=== PATIENT | male | born 1990 | race Caucasian/White ===

== ENCOUNTER 2023-03-23 19:52 | Outpatient (REF) | payer MEDICAID, SELFPAY ==
[2023-03-24 09:48] LABS: CT PCR NOT DETECTED (Not Detect.); NG PCR NOT DETECTED (Not Detect.)
[2023-03-25 23:59] LABS: Trichomonas vaginalis RNA NOT DETECTED (NOT DETECTED)
== END 2023-03-23 19:53 | disposition home or self-care (01) ==
LOC: HO.HHCLNP 19:52
PROVIDERS: Visit Provider Nurse Practitioner Primary Care
DX: R31.0 Gross hematuria (principal)
CPT/HCPCS: 0353U; 36415; 87661

== ENCOUNTER 2023-03-24 08:59 | Outpatient (REF) | payer MEDICAID, SELFPAY ==
[2023-03-25 07:43] LABS: HIV AB/AG Nonreactive (Nonreactive); HIV Num 1 0.06 S/CO (0.00-0.99); ~Hepatitis C Antibody Nonreactive (Nonreactive)
[2023-03-25 17:54] LABS: RPR Rapid Plasma Reagin NON-REACTIVE (NON-REACTIVE)
== END 2023-03-24 09:00 | disposition home or self-care (01) ==
LOC: HO.CHCLDS 08:59
PROVIDERS: Visit Provider Nurse Practitioner Primary Care
DX: Z11.4 Encounter for screening for human immunodeficiency virus [HIV] (principal); Z11.3 Encounter for screening for infections with a predominantly sexual mode of transmission
CPT/HCPCS: 36415; 86592; 86803; 87389

== ENCOUNTER 2023-04-21 11:15 | Outpatient (REF) | payer OTHER, SELFPAY ==
[2023-04-22 09:16] LABS: ~HepC Num1 0.14 S/CO (0.00-0.79); ~Hepatitis C Antibody Nonreactive (Nonreactive)
[2023-04-24 19:45] LABS: HIV RNA PCR Qn Copies Not Detected Copies/mL; HIV RNA PCR Qn Log Copies Not Detected Log cps/mL
== END 2023-04-21 11:16 | disposition home or self-care (01) ==
LOC: HO.CHCLDS 11:15
PROVIDERS: Visit Provider Student in an Organized Health Care Education/Training Program
DX: Z00.00 Encounter for general adult medical examination without abnormal findings (principal); Z11.4 Encounter for screening for human immunodeficiency virus [HIV]
CPT/HCPCS: 36415; 86803; 87536; 87900

== ENCOUNTER 2023-05-29 15:28 | Outpatient (AMB) | payer OTHER, SELFPAY ==
--- NOTE | 2023-05-29 15:29 | MHC.OFFVIS ---
Intake Intake Visit Reasons: Hematuria and Hematospermia Intake Note: New Patient presents for initial visit for hematuria Urology Medications: none Blood Thinner: none Store Merchandiser Required: No Accompanied by: Self / Same As Patient Allergies Penicillins Allergy (Unknown, Verified 05/30/23 22:09) Unknown amoxicillin Allergy (Uncoded 05/30/23 22:09) Unknown Medication List - Last Reconciled 05/30/23 by KRISHNA Palma albuterol sulfate 90 mcg/actuation inhalation amitriptyline 25 mg PO BEDTIME doxycycline hyclate 100 mg PO BID 14 days epinephrine IM loratadine 10 mg PO DAILY omeprazole 20 mg PO DAILY topiramate 50 mg PO BEDTIME HPI HPI Comments History of Present Illness Details Car is a 32-year-old male patient of Dr. Arias. He has a past medical history of asthma, cluster headaches, and allergic rhinitis. He presents to the office today as a new patient for ongoing hematospermia. In discussion with the patient today reports having followed up with his PCP approximately 2 months ago for dark-colored urine and hematospermia. He reports recommendations were made for urology referral for further assessment evaluation. When asked he reports hematospermia to be intermittent. He reports last episode was approximately 2-3 weeks ago. He reports at times he feels bladder pressure as well as pain in his left testicle. For reports pain and left testicle is upon ejaculation. He otherwise denies penile discharge. He does report to be sexually active with the same partner for approximately 6 years. He denies any recent or previous trauma to the area. He reports previous STI workup with PCP that was negative. He otherwise denies urinary urgency, urinary frequency, incontinence, nocturia, dysuria, foul smelling urine, changes to urinary stream, flank pain, fever, and or chills. He is happy with his current voiding parameters. In office urinalysis results reviewed with the patient today. He otherwise offers no other issues or concerns at this time. FORMERLY [facility] Medical History Cluster headache Moderate asthma with allergic rhinitis with status asthmaticus Review of Systems Const All systems reviewed & are unremarkable except as noted in HPI and below Physical Exam Const General: cooperative, healthy appearing, comfortable, no acute distress, well developed, alert and awake Orientation/consciousness: patient oriented x3 Limitations: no limitations HEENT Head: Yes normal to inspection, Yes normocephalic and Yes atraumatic Ears: hearing grossly normal bilaterally Eyes General: appearance normal, both eyes and all related structures Neck Neck: Yes normal visual inspection and Yes trachea midline Chest Chest palpation & inspection: normal inspection of the chest Resp Effort & Inspection: normal respiratory effort and able to speak in complete sentences Cardio Rate: regular rate GI Inspection: Yes normal to inspection General: Yes no CVA tenderness Back/Spine/Pelvis Back: no CVA tenderness Skin General skin exam: no rashes or lesions noted Neuro General: patient oriented x3 Extrem General: Yes normal to inspection Psych Appearance: grossly normal and well kempt Mental Status: mental status grossly normal Speech and movement: Normal speech and movement present and Clear speech present Affect: normal affect Attitude: cooperative Thought process: Normal thought process present Thought content: Normal thought content present Insight: Fair insight present (Psych) Judgement: Fair judgement present (Psych) Results AMB Urinalysis, Automated UA Leukoctes 0 Smita/uL Last Edit by [employer] on 05/29/23 15:46 UA Nitrite Negative Last Edit by [employer] on 05/29/23 15:46 UA Urobilinogen 0.2 mg/dL Last Edit by [employer] on 05/29/23 15:46 UA Protein 0 mg/dL Last Edit by [employer] on 05/29/23 15:46 UA pH 6.5 Last Edit by [employer] on 05/29/23 15:46 UA Blood 0 Alex/uL Last Edit by [employer] on 05/29/23 15:46 UA Specific [place] 1.010 Last Edit by [employer] on 05/29/23 15:46 UA Ketone Negative Last Edit by [employer] on 05/29/23 15:46 UA Bilirubin 0 mg/dL Last Edit by [employer] on 05/29/23 15:46 UA Glucose 0 mg/dL Last Edit by [employer] on 05/29/23 15:46 Results Reviewed Results Reviewed: Laboratory Last Values Urine pH (Auto) 6.5 05/29/23 15:40 Specific [place] (Auto) 1.010 05/29/23 15:40 Urine Protein (Auto) 0 mg/dL 05/29/23 15:40 Glucose (UA)(Auto) 0 mg/dL 05/29/23 15:40 Urine Ketones (Auto) Negative 05/29/23 15:40 Urine Blood (Auto) 0 Alex/uL 05/29/23 15:40 Urine Nitrite (Auto) Negative 05/29/23 15:40 Urine Bilirubin (Auto) 0 mg/dL 05/29/23 15:40 Urine Urobilinogen (Auto) 0.2 mg/dL 05/29/23 15:40 Leukocyte Esterase (Auto) 0 Smita/uL 05/29/23 15:40 Assessment & Plan Assessment & Plan (1) Hematospermia: Code(s): R36.1 - Hematospermia (2) Sensation of pressure in bladder area: Code(s): R39.89 - Other symptoms and signs involving the genitourinary system Plan In office urinalysis results reviewed with the patient today; as noted above. Discussed at length potential causes of hematospermia. Reassurance provided. Start doxycycline as discussed and prescribed. Patient reports be happy with current voiding parameters. Discussed at length the importance of drinking plenty of water daily. Follow-up in 3 months; or sooner with any issues, concerns, and or questions. Orders: Orders AMB Urinalysis Automated 05/29/23 Z13.9 - Encounter for screening, unspecified Medications: New doxycycline hyclate 100 mg PO BID 14 days 28 tabs 0RF N39.0 - Urinary tract infection, site not specified, N45.1 - Epididymitis Patient Instructions: The patient had an opportunity to ask questions regarding the treatment plan. All questions were answered. Physical exam, labs, and imaging were discussed and reviewed in detail. As well as risks, benefits, and discussion of treatment choices. No major barriers to understanding were identified. The patient expressed understanding and agreement with the above treatment plan. The patient was made aware they should contact our office by phone for worsening of their current condition, the appearance of new symptoms, or with any questions or concerns. Compliance is encouraged with any medications and follow up testing that is ordered. It is a privilege to be allowed the opportunity to participate in? your urological care.? Again, if you have any questions or concerns If you have any questions or concerns please do not hesitate to contact me. The office is [phone]. This note is constructed using voice recognition software. While every effort has been made to ensure accuracy correctional supply supervisor errors may have been included. Yours sincerely, KRISHNA Palma Coding Level of Care Code New Pt Level 4 (27857) Diagnoses Hematospermia R36.1 Sensation of pressure in bladder area R39.89
== END 2023-05-29 16:06 | disposition home or self-care (01) ==
PROVIDERS: PCP Student in an Organized Health Care Education/Training Program; Visit Provider Nurse Practitioner Family
DX: Z13.9 Encounter for screening, unspecified (principal)
CPT/HCPCS: 99204

== ENCOUNTER → 2023-05-29 15:28 | Outpatient (BNVA) | payer OTHER, SELFPAY | PROVIDERS: PCP Student in an Organized Health Care Education/Training Program; Visit Provider Nurse Practitioner Family | DX: R36.1 Hematospermia (principal); R39.89 Other symptoms and signs involving the genitourinary system | CPT/HCPCS: 81003 ==

== ENCOUNTER 2023-12-08 11:05 | Emergency (ER) | payer OTHER, SELFPAY ==
[2023-12-08 11:28] VITALS: BP 133/88; PULSE 69; RESP 16; TEMP 36.9; O2SAT 98; BMI 34.0
--- NOTE | 2023-12-08 11:31 | ED.GENADULT ---
HPI - General Adult General Chief complaint: General Medical Stated complaint: Needle stick Time Seen by Provider: 12/08/23 11:31 Source: patient Limitations: no limitations History of Present Illness ED Provider: Miya Mcdonald PA-C HPI narrative: 33-year-old male presents after needlestick. 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 Patient is up-to-date on his vaccines, the source patient was identified, his employers currently reaching out to ask the patient if they are willing to be screened against blood borne pathogens. Related Data Home Medications ?Medication ?Instructions ?Recorded ?Confirmed albuterol sulfate 90 mcg/actuation inhalation 05/29/23 aerosol inhaler amitriptyline 25 mg tablet 25 mg PO BEDTIME 05/29/23 epinephrine 0.3 mg/0.3 mL IM 05/29/23 injection, auto-injector loratadine 10 mg tablet 10 mg PO DAILY 05/29/23 omeprazole 20 mg capsule,delayed 20 mg PO DAILY 05/29/23 release topiramate 50 mg tablet 50 mg PO BEDTIME 05/29/23 Previous Rx's ?Medication ?Instructions ?Recorded doxycycline hyclate 100 mg tablet 100 mg PO BID 14 days #28 tabs 05/29/23 Allergies Allergy/AdvReac Type Severity Reaction Status Date / Time Penicillins Allergy Unknown Unknown Verified 12/08/23 11:28 amoxicillin Allergy Unknown Uncoded 05/30/23 22:09 Review of Systems Review of Systems: Yes all other systems are reviewed and are negative Constitutional: Constitutional: Denies fatigue and Denies fever(s) Cardiovascular: Cardiovascular: Denies chest pain and Denies dyspnea Respiratory: Respiratory: Denies dyspnea Integumentary/Breasts: Skin/Breast: Denies rash Endocrine: Endocrine: Denies fatigue FORMERLY [facility], [facility] Past Medical History Attestation statement: The following information was validated with the patient. Medical History Cluster headache Moderate asthma with allergic rhinitis with status asthmaticus Social History Social History Do you have a plan to hurt others: No Plan Physical Exam ED Vital Signs: Vital Signs - 24 hr 12/08/23 11:28 Temperature 98.5 F Pulse Rate 69 Respiratory Rate 16 Blood Pressure 133/88 Pulse Oximetry 98 Oxygen Delivery Method Room Air BMI result Body Mass Index 34.0 Const Other: Alert well in appearance Orientation/consciousness: patient oriented x3 Resp Other: Nonlabored respirations Cardio Other: Normal peripheral perfusion Skin Other: Faint pinpoint needle stick noted at the PIP of right 2nd digit not bleeding Neuro General: patient oriented x3, no focal motor deficits and CN's II-XI intact bilaterally Psych Other: Calm cooperative Medications Administered Discontinued Medications Generic Name Dose Route Start Last Admin Trade Name Jo PRN Reason Stop Dose Admin Raltegravir/Emtricitabine/Tenofovir 1 kit 12/08/23 11:28 12/08/23 11:48 Post Exposure Medication Kit PO 12/08/23 11:29 1 kit ONCE ONE Administration Medical Decision Making Medical Decision Making MDM Narrative: 33-year-old male presents after needlestick. 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 Patient is up-to-date on his vaccines, the source patient was identified, his employers currently reaching out to ask the patient if they are willing to be screened against blood borne pathogens. No chronic problems History per patient I have considered the following differential diagnoses: Potential exposure to blood borne pathogens Plan: The source patient was identified, his employer is currently reaching out to see if they are willing to be screened. The patient will be screened, we are initiating post exposure prophylaxis. Can follow up with his employer and his primary care provider. There was no indication for labs or imaging. Lab Data 12/08/23 11:46 12/08/23 11:46 Discharge Plan Discharge Clinical Impression: Accidental hypodermic needlestick injury Patient Disposition: Home, Self-Care Additional Instructions: Labs were obtained. You are being screened for potential exposure to hepatitis-B, hepatitis-C and HIV. I would reach out to your employer to see if the source patient agreed for the same screening you received. You are receiving a 4 day supply of HIV post exposure prophylaxis. Take the medication as directed, you need to follow up with your primary care provider for the additional prescription for the antiviral medications, which you should take over the course of a month. Prescriptions: No Action topiramate 50 mg tablet 50 mg PO BEDTIME amitriptyline 25 mg tablet 25 mg PO BEDTIME loratadine 10 mg tablet 10 mg PO DAILY albuterol sulfate 90 mcg/actuation HFA aerosol inhaler inhalation epinephrine 0.3 mg/0.3 mL auto-injector IM omeprazole 20 mg capsule,delayed release(DR/EC) 20 mg PO DAILY doxycycline hyclate 100 mg tablet 100 mg PO BID 14 Days Qty: 28 0RF Stand Alone Forms: Work/School Release Print Language: Amharic
[2023-12-08] MEDS: Post Exposure Medication Kit 1 KIT PO (11:48)
[2023-12-08 11:51] LABS: MANUAL DIFF FLAG NO
[2023-12-08 11:53] LABS: Basophils Percent Auto 0.5 % (0-2); Eosinophils Absolute Auto 0.1 X10*3/uL (0.0-0.4); Eosinophils Percent Auto 2.1 % (0-4); Hematocrit 42.9 % (42.0-52.0); Hemoglobin 15.3 g/dl (14.0-18.0); Imm Gran Abs Auto 0.01 X10*3/uL (0.00-0.03); Imm Gran Pct Auto 0.2 % (0.0-0.4); Lymphocytes Absolute Auto 1.8 X10*3/uL (1.2-4.9); Lymphocytes Percent Auto 29.3 % (20-40); Mean Corpuscular HGB Conc 35.7 g/dl (31.0-36.0); Mean Corpuscular Hemoglobin 28.7 pg (27.0-33.0); Mean Corpuscular Volume 80.3 fL (80.0-98.0); Mean Platelet Volume 8.8 fL (9.4-12.4); Monocytes Absolute Auto 0.6 X10*3/uL (0.1-1.2); Monocytes Percent Auto 9.8 % (2-11); Neutrophils Absolute Auto 3.5 x10*3/uL (2.0-8.3); Neutrophils Percent Auto 58.1 % (45-73); Platelet Count 324 X10*3/uL (160-400); Red Blood Count 5.34 X10*6/uL (4.60-5.80); Red Cell Distribution Width 13.2 % (11.0-16.0); White Blood Count 6.1 X10*3/uL (4.8-10.8)
[2023-12-08 12:21] LABS: Albumin Level 4.8 g/dL (3.5-5.0); Alkaline Phosphatase 111 U/L (39-117); Amylase 54 U/L (28-100); Aspartate Amino Transferase 32 U/L (5-37); Bilirubin Direct 0.1 mg/dL (0.0-0.5); Bilirubin Total 0.5 mg/dL (0.0-1.0); Creatinine Clr Calc Pharmacy 122.5; Estimated Glomerular Filt Rate > 60; Total Protein 7.7 g/dL (6.5-8.0)
[2023-12-08 12:54] LABS: HBS Num1 > 1000.00 mIU/mL (0-7.99); HBc Num1 0.33 S/CO (0.00-0.79); HBsAGNum1 0.28 S/CO (0.00-0.99); HIV AB/AG Nonreactive (Nonreactive); HIV Num 1 0.06 S/CO (0.00-0.99); Hepatitis B Core Antibody Nonreactive (Nonreactive); Hepatitis B Surface Antigen Negative (Negative); ~HepC Num1 0.23 S/CO (0.00-0.79); ~Hepatitis B Surface Antibody REACTIVE (Nonreactive); ~Hepatitis C Antibody Nonreactive (Nonreactive)
[2023-12-08 13:23] LABS: Alanine Aminotransferase 56 U/L (0-40)
== END 2023-12-08 11:57 | disposition home or self-care (01) ==
PROVIDERS: Physician Assistant Medical; Emergency Provider Emergency Medicine; PCP Student in an Organized Health Care Education/Training Program
DX: S61.230A Puncture wound without foreign body of right index finger without damage to nail, initial encounter (principal); M79.641 Pain in right hand; X58.XXXA Exposure to other specified factors, initial encounter; Y93.89 Activity, other specified; Y92.89 Other specified places as the place of occurrence of the external cause; Y99.0 Civilian activity done for income or pay; Z20.828 Contact with and (suspected) exposure to other viral communicable diseases; Z79.899 Other long term (current) drug therapy
CPT/HCPCS: 36415; 80076; 82150; 82565; 85025; 86704; 86706; 86803; 87340; 87389; 99282; 99283

== ENCOUNTER 2024-08-04 15:13 | Outpatient (AMB) | payer OTHER, SELFPAY ==
--- NOTE | 2024-08-04 15:15 | MHC.OFFVIS ---
Intake Visit Reasons: follow up Intake Note: Patient presents for follow up visit for hematospermia Urology Medications: none Blood Thinner: none High Pressure Cleaner Required: No Accompanied by: Self / Same As Patient Allergies Penicillins Allergy (Unknown, Verified 08/04/24 21:28) Unknown amoxicillin Allergy (Uncoded 08/04/24 21:28) Unknown Medication List - Last Reconciled 08/04/24 by KRISHNA Palma albuterol sulfate 90 mcg/actuation inhalation epinephrine IM loratadine 10 mg PO DAILY omeprazole 20 mg PO DAILY HPI Comments Details: Car is a 34-year-old male patient of Dr. Arias. He has a past medical history of asthma, cluster headaches, and allergic rhinitis. He presents to the office today for follow-up. Of note, patient was last seen will for 13 months ago at which time recommendations were made for initiation of doxycycline in recommendations were made for a three-month follow-up. However, in discussion with the patient today he reports after completion of antibiotic therapy hematospermia has since resolved however has been experiencing issues with urinary stream. He reports at times he has urinary hesitancy. He describes these episodes as intermittent. Previous scrotal ultrasound 04/11 results reviewed with the patient today left-sided varicocele otherwise unremarkable scrotal ultrasound. We did discussed at length potential causes of varicoceles as well as further treatment options and risks and benefits of these treatment options. He denies urinary urgency, urinary frequency, incontinence, nocturia, dysuria, foul smelling urine, changes to urinary stream, flank pain, fever, and or chills.. In office urinalysis results reviewed with the patient today. He otherwise offers no other issues or concerns at this time. COUNTS INCLUDE 234 BEDS AT THE [facility] Medical History Cluster headache Moderate asthma with allergic rhinitis with status asthmaticus Review of Systems Const All systems reviewed & are unremarkable except as noted in HPI and below Physical Exam Const General: cooperative, healthy appearing, comfortable, no acute distress, well developed, alert and awake Orientation/consciousness: patient oriented x3 Limitations: no limitations HEENT Head: Yes normal to inspection, Yes normocephalic and Yes atraumatic Ears: hearing grossly normal bilaterally Eyes General: appearance normal, both eyes and all related structures Neck Neck: Yes normal visual inspection and Yes trachea midline Chest Chest palpation & inspection: normal inspection of the chest Resp Effort & Inspection: normal respiratory effort and able to speak in complete sentences Cardio Rate: regular rate GI Inspection: Yes normal to inspection General: Yes no CVA tenderness Back/Spine/Pelvis Back: no CVA tenderness Skin General skin exam: no rashes or lesions noted Neuro General: patient oriented x3 Extrem General: Yes normal to inspection Psych Appearance: grossly normal and well kempt Mental Status: mental status grossly normal Speech and movement: Normal speech and movement present and Clear speech present Affect: normal affect Attitude: cooperative Thought process: Normal thought process present Thought content: Normal thought content present Insight: Fair insight present (Psych) Judgement: Fair judgement present (Psych) Results AMB Urinalysis, Automated UA Leukoctes 0 Smita/uL Last Edit by Trixie Daly IA on 08/04/24 15:30 UA Nitrite Negative Last Edit by Trixie Daly IA on 08/04/24 15:30 UA Urobilinogen 3.5 mg/dL Last Edit by Trixie Daly IA on 08/04/24 15:30 UA Protein 0 mg/dL Last Edit by Trixie Hayfield [place] on 08/04/24 15:30 UA pH 6.0 Last Edit by Trixie Hayfield IA on 08/04/24 15:30 UA Blood 0 Alex/uL Last Edit by Trixie Daly IA on 08/04/24 15:30 UA Specific [place] 1.025 Last Edit by Trixie Daly IA on 08/04/24 15:30 UA Ketone Negative Last Edit by Trixie Daly IA on 08/04/24 15:30 UA Bilirubin 0 mg/dL Last Edit by Trixie Hayfield IA on 08/04/24 15:30 UA Glucose 0 mg/dL Last Edit by Trixie Hayfield IA on 08/04/24 15:30 Results Reviewed Results Reviewed: Laboratory Last Values Urine pH (Auto) 6.0 08/04/24 15:17 Specific [place] (Auto) 1.025 08/04/24 15:17 Urine Protein (Auto) 0 mg/dL 08/04/24 15:17 Glucose (UA)(Auto) 0 mg/dL 08/04/24 15:17 Urine Ketones (Auto) Negative 08/04/24 15:17 Urine Blood (Auto) 0 Alex/uL 08/04/24 15:17 Urine Nitrite (Auto) Negative 08/04/24 15:17 Urine Bilirubin (Auto) 0 mg/dL 08/04/24 15:17 Urine Urobilinogen (Auto) 3.5 mg/dL 08/04/24 15:17 Leukocyte Esterase (Auto) 0 Smita/uL 08/04/24 15:17 Assessment & Plan Assessment & Plan (1) Hematospermia: Code(s): R36.1 - Hematospermia Category: Medical (2) History of urinary hesitancy: Code(s): Z87.898 - Personal history of other specified conditions Category: Medical (3) Varicocele: Code(s): I86.1 - Scrotal varices Category: Medical Plan In office urinalysis results reviewed the patient today; as noted above. Previous scrotal ultrasound results reviewed with the patient today; as noted above. We discussed potential causes of varicoceles as well as further treatment options and risks and benefits of these treatment options. Hematospermia has since resolved We discussed attempting to sit when voiding to relax pelvis to assist with urinary hesitancy. We also discussed further treatment options of urinary hesitancy and risks and benefits of these treatment options. Will continue with surveillance monitoring at this time. Follow-up in 3-6 months with [facility]; or sooner with any issues, concerns, and or questions. Orders: Orders AMB Urinalysis Automated Today Z13.9 - Encounter for screening, unspecified Patient Instructions: The patient had an opportunity to ask questions regarding the treatment plan. All questions were answered. Physical exam, labs, and imaging were discussed and reviewed in detail. As well as risks, benefits, and discussion of treatment choices. No major barriers to understanding were identified. The patient expressed understanding and agreement with the above treatment plan. The patient was made aware they should contact our office by phone for worsening of their current condition, the appearance of new symptoms, or with any questions or concerns. Compliance is encouraged with any medications and follow up testing that is ordered. It is a privilege to be allowed the opportunity to participate in? your urological care.? Again, if you have any questions or concerns If you have any questions or concerns please do not hesitate to contact me. The office is [phone]. This note is constructed using voice recognition software. While every effort has been made to ensure accuracy coconut boiler errors may have been included. Yours sincerely, JANET Palma-LAINA Coding Level of Care Code Est Pt Level 3 (02311) Diagnoses Hematospermia R36.1 History of urinary hesitancy Z87.898 Varicocele I86.1
--- OUTSIDE RECORDS SUMMARY | 2024-08-04 16:32 | XMS_ITS | Encounter Summary ---
Author Organization [employer] Address [address] [facility] [address] [place] [address] Care Team Providers Care Maintenance And Operations Supervisor Name Role Phone Vivian Arias MD Primary Care Provider [phone] Encounter Details Date Type Department Care Team (Late st Contact Info) Description 02/25/2022 Telephone [facility] MEDICINE [address] [place] [address] Vivian Arias MD [address] [place] [address] Social History Tobacco Use Types Packs/Day Years Used Date Smoking Tobacco: Never Assessed Sex and Gender Information Value Date Recorded Sex Assigned at Male 12/16/2021 10:29 AM EDT Legal Sex Male 10:29 AM EDT Gender Identity Male 12/16/2021 10:29 AM EDT Sexual Orientation Straight 12/16/2021 10 :29 AM EDT documented as of this encounter Plan of Treatment Not on file documented as of this encounter Visit Diagnoses Not on filedocumented in this encounter Care Teams Maintenance And Operations Supervisor Relationship Specialty Start Date End Date Vivian Arias MD [address] [place] [address] PCP - General Family Medicine 02/27/15 documented as of this encounter
== END 2024-08-04 16:06 | disposition home or self-care (01) ==
LOC: HO.HUSH 15:15
PROVIDERS: PCP Student in an Organized Health Care Education/Training Program; Visit Provider Nurse Practitioner Family
DX: R36.1 Hematospermia (principal); Z87.898 Personal history of other specified conditions; I86.1 Scrotal varices; Z13.9 Encounter for screening, unspecified
CPT/HCPCS: 99213

== ENCOUNTER → 2024-08-04 15:13 | Outpatient (BNVA) | payer OTHER, SELFPAY | PROVIDERS: PCP Student in an Organized Health Care Education/Training Program; Visit Provider Nurse Practitioner Family | DX: R36.1 Hematospermia (principal) | CPT/HCPCS: 81003 ==

== ENCOUNTER 2024-10-03 15:05 | Outpatient (REF) | payer OTHER, SELFPAY ==
--- OUTSIDE RECORDS SUMMARY | 2024-10-03 15:43 | XMS_ITS | Clinical Summary ---
Author Organization [facility] Address [address] [place] [address] Care Team Providers Care Operating Room Surgical Technologist Name Role Phone Unavailable Primary Care Provider Unavailabl e Social History Tobacco Use Types Packs/Day Years Used Date Smoking Tobacco: Never Assessed Sex and Gender Information Value Date Recorded Sex Assigned at Not on file Legal Sex Male 5:42 PM EST Gender Identity Not on file Sexual Orientation Not on file Plan of Treatment Health Maintenance Due Date Last Done Comments DTaP,Tdap,and Td Vaccines (1 - Tdap) 07/30/2010 Hepatitis B Vaccines (1 of 3 - 19+ 3-dose series) 07/30/2010 COVID-19 Vaccine ( - 2023-2 5 season) 2023 Depression Screening 02/17/2024 Influenza Vaccine (#1) 2024 HIB Vaccines Aged Out No longer eligi ble based on patient's age to complete this topic HPV Vaccines Aged Out No longer eligi ble based on patient's age to complete this topic Hepatitis A Vaccines Aged Out No long er eligible based on patient's age to complete this topic IPV Vaccines Aged Out No longer eligi ble based on patient's age to complete this topic MMR Vaccines Aged Out No longer eligi ble based on patient's age to complete this topic Meningococcal ACWY Vaccine Aged Out N o longer eligible based on patient's age to complete this topic Meningococcal B Vaccine Aged Out No l onger eligible based on patient's age to complete this topic Pneumococcal Vaccine: Pediat rics (0 to 5 Years) and At-Risk Patients (6 to 49 Years) Aged Out No longer eligible b ased on patient's age to complete this topic RSV Immunization Patients Un shell 20 months Aged Out No longer eligible b ased on patient's age to complete this topic Varicella Vaccines Aged Out No longer eligible based on patient's age to complete this topic
[2024-10-03 17:23] LABS: Anion Gap 11 (12-20); Blood Urea Nitrogen 14 mg/dL (9-16); Calcium 9.4 mg/dL (8.4-10.2); Carbon Dioxide 27 mmol/L (22-29); Chloride 105 mmol/L (96-108); Estimated Glomerular Filt Rate > 60; Potassium 4.3 mmol/L (3.3-5.1); Sodium 139 mmol/L (135-145)
[2024-10-03 17:39] LABS: Folate 11.4 ng/mL (> or = 4.0); Vitamin B12 606 pg/mL (200-900)
[2024-10-04 08:28] LABS: HIV Num 1 0.07 S/CO (0.00-0.99); ~HepC Num1 0.11 S/CO (0.00-0.79); ~Hepatitis C Antibody Nonreactive (Nonreactive)
== END 2024-10-03 15:06 | disposition home or self-care (01) ==
LOC: HO.HHCL 15:05
PROVIDERS: PCP Internal Medicine; Visit Provider Internal Medicine
DX: Z11.59 Encounter for screening for other viral diseases (principal); R20.2 Paresthesia of skin; Z11.4 Encounter for screening for human immunodeficiency virus [HIV]; W46.0XXA Contact with hypodermic needle, initial encounter
CPT/HCPCS: 36415; 80048; 82607; 82746; 84207; 84425; 86803; 87389

== ENCOUNTER 2024-11-24 13:53 | Outpatient (REF) | payer OTHER, SELFPAY ==
--- NOTE | 2024-11-24 | EMG_ITS ---
Chief complaint: R20.2 Tingling of left upper extremity [id number] Reason for referral: tingling and numbness of the left forearm extending to the last 2 fingers Referred by:Micah Virgen Procedure done: Left upper extremity NCS/EMG Left median and ulnar motor studies were performed. Left median mixed, ulnar mixed, and radial sensory studies were performed. Left median digit sec ortho sensory and digit 5 ortho sensory studies were also obtained. EMG needle examination was performed. Needle examination revealed long duration polyphasic potential in left lower cervical paraspinal with decreased recruitment in triceps extensor indicis and abductor digiti minimi. Impression: Left mid to lower cervical radiculopathy with no evidence of entrapment neuropathy MTDD
== END 2024-11-24 13:54 | disposition home or self-care (01) ==
LOC: HO.NEURO 13:53
PROVIDERS: Visit Provider Internal Medicine
DX: R20.2 Paresthesia of skin (principal)
CPT/HCPCS: 95886; 95910

== ENCOUNTER → 2024-11-24 14:05 | Outpatient (BNV) | payer OTHER, SELFPAY | PROVIDERS: Visit Provider Psychiatry & Neurology Neurology | DX: M54.12 Radiculopathy, cervical region (principal) | CPT/HCPCS: 95886; 95910 ==

== ENCOUNTER 2024-11-30 13:36 | Outpatient (REF) | payer OTHER, SELFPAY ==
--- NOTE | ~2024-11-30 | XR_ITS ---
EXAMINATION: XR CERVICAL SPINE 2-3 VIEWS HISTORY: left arm tingling, muscle spasm COMPARISON: There are no prior studies available for comparison. FINDINGS: AP, lateral, swimmer's, and open-mouth odontoid views of the cervical spine are submitted. Osseous mineralization is normal. Seven cervical vertebral bodies are identified maintaining normal height and alignment without evidence of fracture or subluxation. The intervertebral disc spaces are preserved. The odontoid and lateral masses of C1 are intact. There is no prevertebral soft tissue swelling. XR/XR cervical spine 3V IMPRESSION: Unremarkable examination of the cervical spine. Electronically signed by: Jimbo Douglas MD 11/30/2024 02:07 PM EDT
--- OUTSIDE RECORDS SUMMARY | 2024-11-30 17:32 | XMS_ITS | Encounter Summary ---
Author Organization [employer] Address [address] [place] [address] [address] [place] [address] Care Team Providers Care Computer Installer Name Role Phone Vivian Arias MD Primary Care Provider [phone] Samm Loyola CNP Primary Care Provider [phone] Encounter Details Date Type Department Care Team (Late st Contact Info) Description 02/25/2022 Telephone [facility] MEDICINE [address] [place] [address] Vivian Arias MD [address] [place] [address] Social History Tobacco Use Types Packs/Day Years [...] on filedocumented in this encounter Care Teams Computer Installer Relationship Specialty Start Date End Date Vivian Arias MD [address] [place] [address] PCP - General Family Medicine 02/27/15 09/22/24 Samm Loyola CNP [address] [place] [address] PCP - General Family Medicine 09/23/24 documented as of this encounter
--- OUTSIDE RECORDS SUMMARY | 2024-11-30 17:32 | XMS_ITS | Encounter Summary ---
Author Organization [employer] Address [address] [place] [address] [place] [address] Care Team Providers Care Engine Emission Technician Name Role Phone Samm Loyola CNP Primary Care Provider [phone] Reason for Referral * Neurology (Routine) - Closed Specialty Diagnoses / Procedures Referred By Estefany rowe Referred To Contact Diagnoses Tingling of left upper extremity Procedures EMG Yesica Virgen MD [address] [place] [address] Phone: tel: fax: [address] Phone: tel: fax: Referral ID Status Reason Start Date Expiration Date Visits Re quested Visits Authorized [id number] Closed 10/26/2024 10/26/2025 1 1 Encounter Details Date Type Department Care Team (Late st Contact Info) Description 10/26/2024 Orders Only [facility] CHC MED & PEDS [address] [place] [address] Yesica Virgen MD [address] [place], [place] [phone] Tingling of left upper extremity (Primary Dx) Social History Tobacco Use Types Packs/Day Years Used Date Smoking Tobacco: Never Smokeless Tobacco: Never Depression Answer Date Recorded Patient Health Questionnaire-9 Score 6 04/21/2023 Patient Health Questionnaire-9 Score 6 04/21/2023 Last PHQ-9: Questionnaire Data Not on file 0 04/21/2023 Housing Stability Answer Date Recorded What is your housing situation today? I have toribio verma 04/21/[address] you li ve. Do you have problems with any of the following? None of the above 04/21/2023 Food Insecurity Answer Date Recorded Within the past 12 months, y ou worried that your food would run out before you got money to buy more: Never True 04/21/2023 Within the past 12 months,th e food you bought just didn't last and you didn't have enough money to get more: Never True 06/2023 Transportation Answer Date Recorded In the past 12 months, has l ack of transportation kept you from medical appts, meetings, work or from getting things needed for daily living? No 04/21/2023 Utilities Answer Date Recorded In the past 12 months, has t he electric, gas, oil or water company threatened to shut off services in your home? No 04/21/2023 Depression Answer Date Recorded Patient Health Questionnaire-2 Score 2 04/21/2023 Sex and Gender Information Value Date Recorded Sex Assigned at Male 12/16/2021 10:29 AM EDT Legal Sex Male 10:29 AM EDT Gender Identity Male 12/16/2021 10:29 AM EDT Sexual Orientation Straight 12/16/2021 10 :29 AM EDT documented as of this encounter Plan of Treatment Scheduled Orders Name Type Priority Associated Diagnoses Orde r Schedule EMG Neurology Routine Tingling of left upper extremity Expected: 10/26/2024, Expires: 04/25/2025 documented as of this encounter Visit Diagnoses Diagnosis Tingling of left upper extremity- Primary documented in this encounter Additional Health Concerns Assessment Noted Time PHQ-9 Depression Total Score: 6 04/21/19 24 10:23 AM EST documented as of this encounter Care Teams Engine Emission Technician Relationship Specialty Start Date End Date Samm Loyola CNP PCP - General Family Medicine 09/23/24 documented as of this encounter
--- OUTSIDE RECORDS SUMMARY | 2024-11-30 17:32 | XMS_ITS | Encounter Summary ---
Author Organization [employer] Address [address] [facility] [address]t [place] [address] Care Team Providers Care Electronic Science Teacher Name Role Phone Samm Loyola CNP Primary Care Provider [phone] Reason for Visit * Reason Onset Date Comments Med Refill 09/30/2024 Encounter Details Date Type Department Care Team (Late st Contact Info) Description 09/30/2024 Refill [facility] CHC MED & PEDS [address] [place] [address] Vivian Arias MD [address] [place] [address] Social History Tobacco Use Types Packs/Day Years [...] Diagnoses Not on filedocumented in this encounter Additional Health Concerns Assessment Noted Time PHQ-9 Depression Total Score: 6 04/21/19 24 10:23 AM EST documented as of this encounter Care Teams Electronic Science Teacher Relationship Specialty Start Date End Date Samm Loyola CNP PCP - General Family Medicine 09/23/24 documented as of this encounter
--- OUTSIDE RECORDS SUMMARY | 2024-11-30 17:32 | XMS_ITS | Encounter Summary ---
Author Organization [employer] Address [address] [facility] [address]t [place] [address] Care Team Providers Care Mercerizer Machine Operator Name Role Phone Vivian Arias MD Primary Care Provider [phone] Samm Loyola CNP Primary Care Provider [phone] Reason for Visit * Reason Onset Date Comments Nurse Triage 03/23/2024 Encounter Details Date Type Department Care Team ([facility] st Contact Info) Description 03/23/2024 Telephone [facility] CHC MED & PEDS [address] [place] [address] Vivian Arias MD [address] [place] [address] Nurse Triage Social History Tobacco Use Types Packs/Day Years [...] AM EDT documented as of this encounter Miscellaneous Notes * Telephone Encounter - Khushbu Rubalcava RN - 03/23/2024 12:06 PM EST Triage call Pt reports upper abdominal pain which comes and goes relieved by diarrhea raimundo if eatinganything. Diarrhea is watery little to no stool at this point. No diarrhea today at time of call because not eating but, yesterday diarrhea 4-5x after eating. Neg for fever, has bodyaches, headache, neg for vomiting. Pt is offered to come to [facility] [place] today to obtain note for work, hours open till 8pm or 830am - 400pm tomorrow, . 03/24/24. Pt is also offered to call back in morning for [facility] in [facility] which would be open for booking then. Pt will consider options. Pt is advised to increase liquids especially warm liquids decaf tea with honey, broth, water, juices, gator jillian. Pt agrees with home care advised and disposition. Insurance is verified as active. Protocol Used: Abdominal Pain - Upper (Adult) Protocol-Based Disposition: See in Office or Video Visit Today or Tomorrow Video visit not offered Positive Triage Question: * Moderate pain that comes and goes (cramps) lasts > 24 hours * All higher-acuity triage questions were negative Care Advice Discussed: * Reassurance and Education - Stomach Pain * Antacid Medicine * Drink Clear Fluids * Diet * Reasons To Call Back - Severe pain present over 1 hour - Constant pain present over 2 hours - Moderate pains come and go for more than 24 hours - Mild pains come and go for more than 72 hours - You become worse * Telephone Encounter - Niurka Pimentel - 03/23/2024 11:47 AM EST Symptom: Abdominal Pain , diarrhea and headache - Male Outcome: Schedule an urgent appointment (within 4 hours) or talk to a nurse or provider soon Reason: Started within the past 3 days The caller accepted this outcome. documented in this encounter Plan of Treatment Not on file documented as of this encounter Visit Diagnoses Not on filedocumented in this encounter Additional Health Concerns Assessment Noted Time PHQ-9 Depression Total Score: 6 04/21/19 24 10:23 AM EST documented as of this encounter Care Teams Mercerizer Machine Operator Relationship Specialty Start Date End Date Vivian Arias MD [address] [place] [address] PCP - General Family Medicine 02/27/15 09/22/24 Samm Loyola CNP [address] [place] [address] PCP - General Family Medicine 09/23/24 documented as of this encounter
--- OUTSIDE RECORDS SUMMARY | 2024-11-30 17:32 | XMS_ITS | Encounter Summary ---
Author Organization [employer] Address [address] [facility] 7 [place] [address] Care Team Providers Care Spreading Machine Operator Name Role Phone Samm Loyola CNP Primary Care Provider [phone] Reason for Visit * Reason Onset Date Comments Results 11/28/2024 Encounter Details Date Type Department Care Team ([facility] st Contact Info) Description 11/28/2024 Telephone [facility] CHC MED & PEDS [address] [place] [address] Yesica Virgen MD [address] [place] [address] Results Social History Tobacco Use Types Packs/Day Years [...] encounter Miscellaneous Notes * Telephone Encounter - Eileen Waddell RN - 11/28/2024 5:33 PM EDT Per PCP: Please call to report the results of the NCS: Left mid to lower cervical radiculopathy with no evidence of entrapment neuropathy ( His symptoms could be coming from a nerve compression in his Cervical spine.) A cervical spine xray was ordered. Clifford not sure if Mr Car Willson had done it. If he has not done it yet, please advise to do it. He will benefit from a few sessions of physical therapy. I will refer him. TC to pt and reviewed results, informed of locations to have x-ray done, and advised of PT referral. Pt verbalized understanding and agreement with plan. documented in this encounter Plan of Treatment Not on file documented as of this encounter Visit Diagnoses Not on filedocumented in this encounter Additional Health Concerns Assessment Noted Time PHQ-9 Depression Total Score: 6 04/21/19 24 10:23 AM EST documented as of this encounter Care Teams Spreading Machine Operator Relationship Specialty Start Date End Date Samm Loyola CNP PCP - General Family Medicine 09/23/24 documented as of this encounter
--- OUTSIDE RECORDS SUMMARY | 2024-11-30 17:32 | XMS_ITS | Encounter Summary ---
Author Organization [employer] Address [address] [place] [address] [address] [place] [address] Care Team Providers Care Wool Grower Name Role Phone Vivian Arias MD Primary Care Provider [phone] Samm Loyola CNP Primary Care Provider [phone] Encounter Details Date Type Department Care Team (Latest Contact Info) Description 11/12/2021 Abstract [facility] CONVERSIONS Dental, Provider, DDS Social History Tobacco Use Types Packs/Day Years [...] on filedocumented in this encounter Care Teams Wool Grower Relationship Specialty Start Date End Date Vivian Arias MD [address] [place] [address] PCP - General Family Medicine 02/27/15 09/22/24 Samm Loyola CNP [address] [place] [address] PCP - General Family Medicine 09/23/24 documented as of this encounter
--- OUTSIDE RECORDS SUMMARY | 2024-11-30 17:32 | XMS_ITS | Encounter Summary ---
Author Organization [employer] Address [address] [place] [address] 7 [place] [address] Care Team Providers Care Crew Manager Name Role Phone Vivian Arias MD Primary Care Provider [phone] Samm Loyola CNP Primary Care Provider [phone] Encounter Details Date Type Department Care Team [...] on filedocumented in this encounter Care Teams Crew Manager Relationship Specialty Start Date End Date Vivian Arias MD [address] [place] [address] PCP - General Family Medicine 02/27/15 09/22/24 Samm Loyola CNP [address] [place] [address] PCP - General Family Medicine 09/23/24 documented as of this encounter
--- OUTSIDE RECORDS SUMMARY | 2024-11-30 17:32 | XMS_ITS | Encounter Summary ---
Author Organization [employer] Address [address] [place] [address] [place], [place] [address] Care Team Providers Care Rustic Fence Builder Name Role Phone Vivian Arias MD Primary Care Provider Samm Loyola CNP Primary Care Provider [phone] Encounter Details Date Type Department Care Team (Late st Contact Info) Description 02/25/2022 Telephone [facility] MED & PEDS [address] [place], [place] [phone] Vivian Arias MD [address] [place] [address] Social History Tobacco Use Types Packs/Day Years [...] on filedocumented in this encounter Care Teams Rustic Fence Builder Relationship Specialty Start Date End Date Vivian Arias MD [address] [place], [place] [phone] PCP - General Family Medicine 02/27/15 09/22/24 Samm Loyola CNP [address] [place], [place] [phone] PCP - General Family Medicine 09/23/24 documented as of this encounter
--- OUTSIDE RECORDS SUMMARY | 2024-11-30 17:32 | XMS_ITS | Encounter Summary ---
Author Organization [employer] Address [address] [facility] [address], [place] [address] Care Team Providers Care Tool And Gauge Inspector Name Role Phone Samm Loyola CNP Primary Care Provider [phone] Reason for Referral * Consultation (Routine) - Closed Specialty Diagnoses / Procedures Referred By Estefany rowe Referred To Contact Physical Therapy Diagnoses Tingling of left upper extremity Cervical radiculopathy Yesica Virgen MD [address] [place] [address] Phone: tel: fax: Physical Therapy, [facility] [address] [facility] [address] [place] [address] Phone: tel: fax: Referral ID Status Reason Start Date Expiration Date V isits Requested Visits Authorized [id number] Closed Specialty Services Required 11/25/2024 11/25/2025 1 1 Encounter Details Date Type Department Care Team (Late st Contact Info) Description 11/25/2024 Orders Only [facility] CHC MED & PEDS [address] [place], [place] [phone] Yesica Virgen MD [address] [place], [place] [phone] Tingling of left upper extremity (Primary Dx); Cervical radiculopathy Social History Tobacco Use Types Packs/Day Years [...] of this encounter Plan of Treatment Scheduled Referrals Name Type Priority Associated Diagnoses Orde r Schedule Referral to Physical Therapy Outpatient Referral Routine Tingling of left upper extremity Cervical radiculopathy Expected: 11/25/2024 (Approximate), Expires: 11/25/2025 documented as of this encounter Procedures Procedure Name Priority Date/Time Associated Diagnosis Comments XR CERVICAL SPINE 3V Routine 11/30/2024 1:55 PM EDT documented in this encounter Results * XR CERVICAL SPINE 3V (11/30/2024 1:55 PM EDT) Anatomical Region Laterality Modality Abdomen Radiographic Brandy ging 11/30/2024 1:55 PM EDT Narrative 11/30/2024 2:10 PM EDT [address] [address] XRay Report Signed Patient: Car Willson MR#: [id number] : 1990 Acct:[id number] Age/Sex: 34 / M ADM Date: 11/30/24 Loc: HO.XRAY Attending Dr: Yesica Virgen MD Ordering Physician: Yesica Virgen MD Date of Service: 11/30/24 Procedure(s): XR cervical spine 3V Accession Number(s): [id number] cc: Yesica Virgen MD Reason for Exam: left arm tingling, muscle spasm EXAMINATION: XR CERVICAL SPINE 2-3 VIEWS HISTORY: left arm tingling, muscle spasm COMPARISON: There are no prior studies available for comparison. FINDINGS: AP, lateral, swimmer's, and open-mouth odontoid views of the cervical spine are submitted. Osseous mineralization is normal. Seven cervical vertebral bodies are identified maintaining normal height and alignment without evidence of fracture or subluxation. The intervertebral disc spaces are preserved. The odontoid and lateral masses of C1 are intact. There is no prevertebral soft tissue swelling. XR/XR cervical spine 3V IMPRESSION: Unremarkable examination of the cervical spine. Electronically signed by: Jimbo Douglas MD 11/30/2024 02:07 PM EDT Dictated By: Jimbo Douglas MD Signed By: <Electronically signed by Jimbo Douglas MD in OV> 11/30/24 1407 DD/ 1355 TD/TT: 11/30/24 1404 Diamond Sizer And Grader: Procedure Note Donotuseinterpreter, Image - 11/30/[address] [address] XRay Report Signed Patient: Car WillsonMR#: [id number] : 1990Acct:[id number] Age/Sex: 34 / MADM Date: 11/30/24 Loc: HO.XRAY Attending Dr: Yesica Virgen MD Ordering Physician: Yesica Virgen MD Date of Service: 11/30/24 Procedure(s): XR cervical spine 3V Accession Number(s): [id number] cc: Yesica Virgen MD Reason for Exam: left arm tingling, muscle spasm EXAMINATION: XR CERVICAL SPINE 2-3 VIEWS HISTORY: left arm tingling, muscle spasm COMPARISON: There are no prior studies available for comparison. FINDINGS: AP, lateral, swimmer's, and open-mouth odontoid views of the cervical spine are submitted. Osseous mineralization is normal. Seven cervical vertebral bodies are identified maintaining normal height and alignment without evidence of fracture or subluxation. The intervertebral disc spaces are preserved. The odontoid and lateral masses of C1 are intact. There is no prevertebral soft tissue swelling. XR/XR cervical spine 3V IMPRESSION: Unremarkable examination of the cervical spine. Electronically signed by: Jimbo Douglas MD 11/30/2024 02:07 PM EDT RP Dictated By: Jimbo Douglas MD Signed By: <Electronically signed by Jimbo Douglas MD in OV> 11/30/24 1407 DD/ 1355 TD/TT: 11/30/24 1404 Diamond Sizer And Grader: Yesica Virgen MD IMG XR PROCEDURES Final Res ult documented in this encounter Visit Diagnoses Diagnosis Tingling of left upper extremity- Primary Cervical radiculopathy Brachial neuritis or radiculitis nos documented in this encounter Additional Health Concerns Assessment Noted Time PHQ-9 Depression Total Score: 6 04/21/19 24 10:23 AM EST documented as of this encounter Care Teams Tool And Gauge Inspector Relationship Specialty Start Date End Date Samm Loyola CNP PCP - General Family Medicine 09/23/24 documented as of this encounter
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
--- OUTSIDE RECORDS SUMMARY | 2024-11-30 17:33 | XMS_ITS | Clinical Summary ---
Author Organization [facility] ity Address [address] [place] [address] Care Team Providers Care Field Insurance Sales Manager Name Role Phone Unavailable Primary Care Provider [...] of 3 - 19+ 3-dose series) 07/30/2010 HPV Vaccines (1 - 3-dose SCD M series) 07/30/2018 Depression Screening 02/17/2024 COVID-19 Vaccine (1 - 2023-2 5 season) 2024 Influenza Vaccine (#1) 2024 RSV Immunization Adult Patie nts (1 - 1-dose 75+ series) 07/30/2066 HIB Vaccines Aged Out No longer eligi [...]
== END 2024-11-30 13:37 | disposition home or self-care (01) ==
LOC: HO.XRAY 13:36
PROVIDERS: PCP Internal Medicine; Visit Provider Internal Medicine
DX: M62.830 Muscle spasm of back (principal); R20.2 Paresthesia of skin
CPT/HCPCS: 72040

== ENCOUNTER → 2024-11-30 13:55 | Outpatient (BNV) | payer OTHER, SELFPAY | PROVIDERS: PCP Internal Medicine; Visit Provider Radiology Diagnostic Radiology | DX: M54.2 Cervicalgia (principal) | CPT/HCPCS: 72040 ==

== ENCOUNTER 2024-12-16 15:53 | Outpatient (REF) | payer OTHER, SELFPAY ==
--- OUTSIDE RECORDS SUMMARY | 2024-12-16 15:30 | XMS_ITS | Encounter Summary ---
Author Organization [employer] Address [address] [facility] 7[address] [place] [address] Care Team Providers Care Bad Work Gatherer Name Role Phone Samm Loyola CNP Primary Care Provider [phone] Encounter Details Date Type Department Care Team (Late st Contact Info) Description 12/16/2024 3:30 PM EDT Office Visit [facility] MED & PEDS [address] [place], [place] [phone] Samm Loyola CNP [address] [place] [address] Encounter for assessment of STD exposure (Primary Dx) Social History Tobacco Use Types Packs/Day Years Used Date Smoking Tobacco: Never Smokeless Tobacco: Never Depression Answer Date Recorded Patient Health Questionnaire-9 Score 0 12/16/2024 Patient Health Questionnaire-9 Score 0 12/16/2024 Last PHQ-9: Questionnaire Data Not on file 1 Housing Stability Answer Date Recorded What is your housing situation today? I have toribio verma 12/16/[address] you li ve. Do you have problems with any of the following? None of the above 12/16/2024 Food Insecurity Answer Date Recorded Within the past 12 months, y ou worried that your food would run out before you got money to buy more: Never True 12/16/2024 Within the past 12 months,th e food you bought just didn't last and you didn't have enough money to get more: Never True Transportation Answer Date Recorded In the past 12 months, has l ack of transportation kept you from medical appts, meetings, work or from getting things needed for daily living? No 12/16/2024 Utilities Answer Date Recorded In the past 12 months, has t he electric, gas, oil or water company threatened to shut off services in your home? No 12/16/2024 Depression Answer Date Recorded Patient Health Questionnaire-2 Score 0 12/16/2024 Internet Access Answer Date Recorded Internet Access Q1 Yes 12/16/2024 Internet Access Q2 Not on file 12/16/2024 Sex and Gender Information Value Date Recorded Sex Assigned at Male 12/16/2021 10:29 AM EDT Legal Sex Male 10:29 AM EDT Gender Identity Male 12/16/2021 10:29 AM EDT Sexual Orientation Straight 12/16/2021 10 :29 AM EDT documented as of this encounter Last Filed Vital Signs Vital Sign Reading Time Taken Comments Blood Pressure 142/74 12/16/2024 3:30 PM EDT Pulse 76 12/16/2024 3:30 PM EDT Temperature 36.4 C (97.6 F) 12/16/2024 3:30 PM EDT Respiratory Rate 20 12/16/2024 3:30 PM EDT Oxygen Saturation - - Inhaled Oxygen Concentration - - Weight 98.4 kg (217 lb) 12/16/2024 3:30 PM EDT Height 175.3 cm (5' 9 ) 12/16/2024 3:30 PM EDT Body Mass Index 32.05 12/16/2024 3:30 PM EDT documented in this encounter Functional Status * Over the past 2 weeks, how often have you been bothered by any of the following problems? Question Answer Date of Assessment Author Patient Health Questionnaire-2 Score 0 11/18 3:31 PM EDT Caitlin Ellis MA * Little interest or pleasure in doing things Answer Date of Assessment Author Not at all 12/16/2024 3:31 PM EDT Geno Ellis MA * Feeling down, depressed, or hopeless Answer Date of Assessment Author Not at all 12/16/2024 3:31 PM EDT Geno Ellis MA * Trouble falling or staying asleep, or sleeping too much Answer Date of Assessment Author Not at all 12/16/2024 3:31 PM EDT Geno Ellis MA * Feeling tired or having little energy Answer Date of Assessment Author Not at all 12/16/2024 3:31 PM EDT Geno Ellis MA * Poor appetite or overeating Answer Date of Assessment Author Not at all 12/16/2024 3:31 PM EDT Geno Ellis MA * Feeling bad about yourself - or that you are a failure or have let yourself or your family down Answer Date of Assessment Author Not at all 12/16/2024 3:31 PM EDT Geno Ellis MA * Trouble concentrating on things, such as reading the newspaper or watching television Answer Date of Assessment Author Not at all 12/16/2024 3:31 PM EDT Geno Ellis MA * Moving or speaking so slowly that other people could have noticed? Or the opposite - being so fidgety or restless that you have been moving around a lot more than usual. Answer Date of Assessment Author Not at all 12/16/2024 3:31 PM EDT Geno Ellis MA * Thoughts that you would be better off or hurting yourself in some way Answer Date of Assessment Author Not at all 12/16/2024 3:31 PM EDT Geno Ellis MA * Patient Health Questionnaire-9 Score Answer Date of Assessment Author 0 12/16/2024 3:31 PM EDT Geno Ellis MA documented as of this encounter Progress Notes * Samm Loyola CNP - 12/16/2024 3:30 PM EDT Subjective Patient ID: Car Willson is a 34 y.o. male who presents for STI testing HPI Pt reports recently got out of a 9 yr relationship has had a new partner in past 3-4 months and wanted to get routine testing completed. He is asymptomatic. He had prior testing at [facility] but presents today because he was told he had to have remainder of tests here. He specifically asks for HSV testing and one other STD he cannot remember name of. Review of Systems Objective Vitals: 12/16/24 1530 BP: (!) 142/74 Pulse: 76 Resp: 20 Temp: 97.6 ??F (36.4 ??C) Physical Exam Constitutional: Appearance: Normal appearance. HENT: Head: Normocephalic and atraumatic. Neurological: General: No focal deficit present. Mental Status: He is alert and oriented to person, place, and time. Psychiatric: Mood and Affect: Mood normal. Behavior: Behavior normal. Assessment/Plan Problem List Items Addressed This Visit None Visit Diagnoses Encounter for assessment of STD exposure - Primary Relevant Orders Trichomonas RNA (Urine/Vaginal) Hepatitis B surface antigen, EIA Hepatitis B Surface Antibody, Qualitative Hepatitis B Core Antibody, Total Reviewed pt prior labs all of which negative. Provided pt education regarding HSV testing, see below. In summary, no routine laboratory tests are recommended for HSV in asymptomatic patients, and serologic testing should be reserved for specific clinical scenarios after careful consideration of test limitations and counseling needs (I.e. if the patient is at increased risk (e.g., men who have sex with men, persons with HIV, or those with a partner known to have genital herpes). I did add on Hep B serologies and trichomonas. Will f/u with pt results Follow up in about 5 months (around 05/16/2025) for annual physical . documented in this encounter Plan of Treatment Scheduled Orders Name Type Priority Associated Diagnoses Orde r Schedule Trichomonas RNA (Urine/Vaginal) Lab Routine Encounter for assessment of STD exposure Ordered: 12/16/2024 Hepatitis B surface antigen, EIA Lab Routine Encounter for assessment of STD exposure Expected: 12/16/2024 (Approximate), Expires: 12/16/2025 Hepatitis B Surface Antibody, Qualitative Lab Routine Encounter for assessment of STD exposure Expected: 12/16/2024 (Approximate), Expires: 12/16/2025 Hepatitis B Core Antibody, Total Lab Routine Encounter for assessment of STD exposure Expected: 12/16/2024 (Approximate), Expires: 12/16/2025 documented as of this encounter Visit Diagnoses Diagnosis Encounter for assessment of STD exposure- Primary documented in this encounter Additional Health Concerns Assessment Noted Time PHQ-9 Depression Total Score: 0 12/17/19 3:31 PM EDT documented as of this encounter Care Teams Bad Work Gatherer Relationship Specialty Start Date End Date Samm Loyola CNP PCP - General Family Medicine 09/23/24 documented as of this encounter
--- OUTSIDE RECORDS SUMMARY | 2024-12-16 15:56 | XMS_ITS | Encounter Summary ---
Author Organization [employer] Address [address] [place] [address] [address], [place] [address] Care Team Providers Care Seafood Processor Name Role Phone Samm Loyola CNP Primary Care Provider [phone] Reason for Referral * Neurology (Routine) - Closed Specialty Diagnoses / Procedures Referred By Estefany rowe Referred To Contact Diagnoses Tingling of left upper extremity Procedures EMG Yesica Virgen MD [address] [place] [address] Phone: tel: fax: [address] Phone: tel: fax: Referral ID Status Reason Start Date Expiration Date Visits Re quested Visits Authorized [id number] Closed 10/26/2024 10/26/2025 1 1 Encounter Details Date Type Department Care Team (Late st Contact Info) Description 10/26/2024 Orders Only [facility] CHC MED & PEDS [address] [place] [address] Yesica Virgen MD [address] [place], [place] [phone] Tingling of left upper extremity (Primary Dx) [...] on file documented as of this encounter Procedures Procedure Name Priority Date/Time Associated Diagnosis Comments EMG Routine 11/24/2024 Tingling of left upper extremity documented in this encounter Results * EMG (11/24/2024) us Yesica Virgen MD NEUROLOGY ORDERABLES Final Result documented in this encounter Visit Diagnoses Diagnosis Tingling of left upper extremity- Primary documented in this encounter Additional Health Concerns Assessment Noted Time PHQ-9 Depression Total Score: 6 04/21/19 24 10:23 AM EST documented as of this encounter Care Teams Seafood Processor Relationship Specialty Start Date End Date Samm Loyola CNP PCP - General Family Medicine 09/23/24 documented as of this encounter
--- OUTSIDE RECORDS SUMMARY | 2024-12-16 15:56 | XMS_ITS | Encounter Summary ---
Author Organization [employer] Address [address] [facility] 7[address] [place] [address] Care Team Providers Care Service Desk Manager Name Role Phone Samm Loyola CNP Primary Care Provider [phone] Encounter Details Date Type Department Care Team (Latest Contact Info) Description 12/16/2024 Travel Social History Tobacco Use Types Packs/Day Years [...] AM EDT documented as of this encounter Functional Status * Over the [...] Author Not at all 12/16/2024 3:31 PM Geno Partida MA * Feeling bad about yourself - or that you are a failure or have let yourself or your family down Answer Date of Assessment Author Not at all 12/16/2024 3:31 PM Geno Partida MA * Trouble concentrating on things, such as reading the newspaper or watching television Answer Date of Assessment Author Not at all 12/16/2024 3:31 PM Geno Partida MA * Moving or speaking so slowly that other people could have noticed? Or the opposite - being so fidgety or restless that you have been moving around a lot more than usual. Answer Date of Assessment Author Not at all 12/16/2024 3:31 PM Geno Partida MA * Thoughts that you would be better off or hurting yourself in some way Answer Date of Assessment Author Not at all 12/16/2024 3:31 PM EDT Geno Ellis MA * Patient Health Questionnaire-9 Score Answer Date of Assessment Author 0 12/16/2024 3:31 PM EDT Geno Ellis MA documented as of this encounter Plan of Treatment Not on file documented as of this encounter Visit Diagnoses Not on filedocumented in this encounter Additional Health Concerns Assessment Noted Time PHQ-9 Depression Total Score: 0 12/17/19 3:31 PM EDT documented as of this encounter Care Teams Service Desk Manager Relationship Specialty Start Date End Date Samm Loyola CNP PCP - General Family Medicine 09/23/24 documented as of this encounter
--- OUTSIDE RECORDS SUMMARY | 2024-12-16 15:56 | XMS_ITS | Encounter Summary ---
Author Organization [employer] Address [address] [place] [address] [address], [place] [address] Care Team Providers Care Mold Press Operator Name Role Phone Vivian Arias MD Primary Care Provider [phone] Samm Loyola CNP Primary Care Provider [phone] Encounter Details Date Type Department Care Team (Late st Contact Info) Description 02/25/2022 Telephone C [facility] [address] [place], [place] [phone] Vivian Arias MD [address] [place] [address] Social History Tobacco Use Types Packs/Day Years [...] on filedocumented in this encounter Care Teams Mold Press Operator Relationship Specialty Start Date End Date Vivian Arias MD [address] [place], [place] [phone] PCP - General Family Medicine 02/27/15 09/22/24 Samm Loyola CNP [address] [place], [place] [phone] PCP - General Family Medicine 09/23/24 documented as of this encounter
--- OUTSIDE RECORDS SUMMARY | 2024-12-16 15:56 | XMS_ITS | Encounter Summary ---
Author Organization [employer] Address [address] [place] [address] [address] [place] [address] Care Team Providers Care Dermatology Specialist Name Role Phone Vivian Arias MD Primary Care Provider [phone] Samm Loyola CNP Primary Care Provider [phone] Encounter Details Date Type Department Care Team (Late st Contact Info) Description 02/25/2022 Telephone [facility] [address] [place] [address] Vivian Arias MD [address] [place] [address] Social History Tobacco Use Types Packs/Day Years [...] on filedocumented in this encounter Care Teams Dermatology Specialist Relationship Specialty Start Date End Date Vivian Arias MD [address] [place] [address] PCP - General Family Medicine 02/27/15 09/22/24 Samm Loyola CNP [address] [place] [address] PCP - General Family Medicine 09/23/24 documented as of this encounter
--- OUTSIDE RECORDS SUMMARY | 2024-12-16 15:57 | XMS_ITS | Clinical Summary ---
Author Organization [facility] ity Address [address] [place] [address] Care Team Providers Care Collection Manager Name Role Phone Unavailable Primary Care [...]
--- OUTSIDE RECORDS SUMMARY | 2024-12-16 15:57 | XMS_ITS | Encounter Summary ---
Author Organization [employer] Address [address] [facility] 7[address] [place] [address] Care Team Providers Care Fruit Or Nut Picker Name Role Phone Samm Loyola CNP Primary Care Provider [phone] Encounter Details Date Type Department Care Team (Late st Contact Info) Description 12/13/2024 Orders Only [facility] MED[facility] [address] [place] [address] Jessa Srinivasan RN Social History Tobacco Use Types Packs/Day Years [...] Procedure Name Priority Date/Time Associated Diagnosis Comments CHLAMYDIA/GONORRHEA - URINE ([place] [facility]) Routine 12/09/2024 SYPHILIS ABS ([place] [facility]) Routine 12/09/2024 HEPATITIS C ANTIBODY ([place] [facility]) Routine 12/09/2024 HIV ANTIBODY/ANTIGEN ([place] [facility]) Routine 12/09/2024 CHLAMYDIA/GONORRHEA THROAT SWAB ([place] [facility]) Routine 12/08/2024 documented in this encounter Results * HIV Ab/Ag ([place] [facility]) (12/09/2024) HIV Ag/Ab Nonreactive Blood [facility] Provider LAB BLOOD ORDERABLES Fauzia l Result * Hepatitis C Antibody ([place] [facility]) (12/09/2024) Hepatitis C Ab Nonreactive Blood Historical Provider LAB BLOOD ORDERABLES Fauzia l Result * Syphilis Antibodies (DPH) (12/09/2024) Syphilis Abs Nonreactive Borderline, Nonreactive, Weakly Reactive, Inconclusive, Specimen unsatisfactory for evaluation Blood Venous blood specimen / Unknown us Historical Provider MD LAB BLOOD ORDERABLES Fauzia l Result * Chlamydia/Gonorrhea, Urine ([place] [facility]) (12/09/2024) Chlamydia, Urine Negative Negative, Indeterminate, None Detected, Invalid, Specimen unsatisfactory for evaluation, Weakly Positive, 2+ Gonorrhea, Urine Negative Negative, Indeterminate, None Detected, Invalid, Specimen unsatisfactory for evaluation, Weakly Positive, 2+ Urine [facility] Provider MD LAB URINE ORDERABLES Fauzia l Result * Chlamydia/Gonorrhea Throat Swab ([place] [facility]) (12/08/2024) Chlamydia Throat Swab Negative Gonorrhea Throat Swab Negative Swab 12/08/2024 [facility] Provider MD LAB MICROBIOLOGY - GENERA L ORDERABLES Final Result documented in this encounter Visit Diagnoses Not on filedocumented in this encounter Additional Health Concerns Assessment Noted Time PHQ-9 Depression Total Score: 6 04/21/19 24 10:23 AM EST documented as of this encounter Care Teams Fruit Or Nut Picker Relationship Specialty Start Date End Date Samm Loyola CNP PCP - General Family Medicine 09/23/24 documented as of this encounter
--- OUTSIDE RECORDS SUMMARY | 2024-12-16 15:57 | XMS_ITS | Encounter Summary ---
Author Organization [employer] Address [address] [facility] 7t [place] [address] Care Team Providers Care Glass Selector Name Role Phone Samm Loyola CNP Primary Care Provider [phone] Encounter Details Date Type Department Care Team ([facility] st Contact Info) Description 12/01/2024 Results Follow-Up [facility] CHC MED & PEDS [address] [place], [place] [phone] Yesica Virgen MD [address] [place] [address] XR CERVICAL SPINE 3V Social History Tobacco Use Types Packs/Day Years [...] documented as of this encounter Care Teams Glass Selector Relationship Specialty Start Date End Date Samm Loyola CNP PCP - General Family Medicine 09/23/24 documented as of this encounter
--- OUTSIDE RECORDS SUMMARY | 2024-12-16 15:57 | XMS_ITS | Encounter Summary ---
Author Organization [employer] Address [address] [facility] 7t [place] [address] Care Team Providers Care Food Preparation Supervisor Name Role Phone Samm Loyola CNP Primary Care Provider [phone] Encounter Details Date Type Department Care Team (Latest Contact Info) Description 12/15/2024 Travel Social History Tobacco Use Types Packs/Day [...] documented as of this encounter Care Teams Food Preparation Supervisor Relationship Specialty Start Date End Date Samm Loyola CNP PCP - General Family Medicine 09/23/24 documented as of this encounter
--- OUTSIDE RECORDS SUMMARY | 2024-12-16 15:57 | XMS_ITS | Encounter Summary ---
Author Organization [employer] Address [address] [place] [address] [address] [place] [address] Care Team Providers Care Brick Tosser Name Role Phone Vivian Arias MD Primary Care Provider [phone] Samm Loyola CNP Primary Care Provider [phone] Encounter Details Date Type Department Care Team [...] on filedocumented in this encounter Care Teams Brick Tosser Relationship Specialty Start Date End Date Vivian Arias MD [address] [place] [address] PCP - General Family Medicine 02/27/15 09/22/24 Samm Loyola CNP [address] [place] [address] PCP - General Family Medicine 09/23/24 documented as of this encounter
--- OUTSIDE RECORDS SUMMARY | 2024-12-16 15:57 | XMS_ITS | Encounter Summary ---
Author Organization [employer] Address [address] [facility] 7[address] [place] [address] Care Team Providers Care Cable Engineer Name Role Phone Vivian Arias MD Primary Care Provider [phone] Samm Loyola CNP Primary Care Provider [phone] Reason for Visit * Reason Onset Date Comments Nurse Triage 03/23/2024 Encounter Details Date Type Department Care Team ([facility] st Contact Info) Description 03/23/2024 Telephone [facility] CHC MED & PEDS [address] [place] [address] Vivian Arias MD [address] [place] [address] Nurse Triage Social History Tobacco Use Types [...] vomiting. Pt is offered to come to [facility] [place] today to obtain note for work, hours open till 8pm or 830am - 400pm tomorrow, . 03/24/24. Pt is also offered to call back in morning for [facility] in [facility] which would be open for booking then. [...] documented as of this encounter Care Teams Cable Engineer Relationship Specialty Start Date End Date Vivian Arias MD [address] [place] [address] PCP - General Family Medicine 02/27/15 09/22/24 Samm Loyola CNP [address] [place] [address] PCP - General Family Medicine 09/23/24 documented as of this encounter
--- OUTSIDE RECORDS SUMMARY | 2024-12-16 15:57 | XMS_ITS | Clinical Summary ---
Author Organization [employer] Address [address] [place] [address] 7t [place] [address] Care Team Providers Care Client Experience Consultant Name Role Phone Samm Loyola CNP Primary Care Provider [phone] Allergies Active Allergy Reactions Criticality Noted Date Comments Amoxicillin 05/21/2015 Other reaction(s): Unknown Banana Abdominal Pain,Anaphylaxis,Diarrhe a,GI bleeding High 12/12/2024 Barley Grass 12/12/2024 Penicillin G Unknown 05/21/2015 Pork Allergy Anaphylaxis,Anxiety, Ches t Pain,Cough,Hives,Itching ,Rash,Shortness of breath High 12/12/2024 Soybean Oil Abdominal Pain,Anxiety,Diarrhea,Di zziness,Drowsiness,Heada hattie,Hives,Palpitations,S hortness of breath,Swelling High 12/12/2024 Medications * This document contains information received [...] BY MOUTH FOUR TIMES DAILY 18 g 04/28/2024 Active Mometasone Furoate (Asmanex HFA) 200 MCG/ACT aerosol uSe daily 13 g 04/28/2024 Active tiZANidine (Zanaflex) 2 MG tabletIndicatio ns:Muscle spasm of back Take 1 tablet (2 mg) by mouth every 6 (six) hours if needed for muscle spasms for up to 10 days. 30 tablet 09/30/2024 Active Active Problems Problem Noted Date Diagnosed Date At risk for fertility problems 12/12/2024 Varicocele 04/21/2023 Depression, unspecified 04/21/2023 Overview (04/24/2023): [...] Encounters Date Type Department Care Team Description 12/16/2024 3:30 PM EDT Office Visit [facility] [address] [place] [address] Samm Loyola CNP Encounter for assessment of STD exposure (Primary Dx) 12/16/2024 Travel 12/15/2024 Travel 12/15/2024 Results Follow-Up [facility] [address] [place] [address] Samm Loyola CNP Chlamydia/Gonorrhea Throat Swab ([facility]) 12/13/2024 Orders Only [facility] [address] [place], [place] [phone] Jessa Srinivasan RN 12/12/2024 Telephone [facility] [address] [place] [address] Samm Loyola CNP chart prep 12/02/2024 Results Follow-Up [facility] [address] [place] [address] Eileen Waddell RN EMG 12/02/2024 Orders Only [facility] [address] [place] [address] Yesica Virgen MD Cervical radiculopathy (Primary Dx) 12/01/2024 Results Follow-Up [facility] [address] [place] [address] Yesica Virgen MD XR CERVICAL SPINE 3V 11/28/2024 Telephone [facility] [address] [place] [address] Yesica Virgen MD Results 11/25/2024 Orders Only [facility] [address] [place] [address] Yesica Virgen MD Tingling of left upper extremity (Primary Dx); Cervical radiculopathy 10/26/2024 Orders Only [facility] [address] [place] [address] Yesica Virgen MD Tingling of left upper extremity (Primary Dx) 10/26/2024 Telephone [place] [employer] [address] [place], [place] [phone] Yesica Virgen MD NERVE CONDUCTION ORDER 10/12/2024 Telephone [facility] [address] [place] [address] Samm Loyola, PLASTIC CNC MACHINE OPERATOR 10/05/2024 Results Follow-Up [facility] [address] [place] [address] Yesica Virgen MD Vitamin B12/Folate, Serum Panel, Basic Metabolic Panel, HIV-1/2 Antigen and Antibodies, Fourth Generation, with Reflexes, Additional followed-up results: 3 09/30/2024 3:40 PM EDT Office Visit [facility] [address] [place] [address] Yesica Virgen MD Muscle spasm of back (Primary Dx); Tingling of left upper extremity; Anxiety; Accident caused by hypodermic needle, initial encounter; Dietary counseling; Exercise counseling; Class 1 obesity due to excess calories without serious comorbidity with body mass index (BMI) of 32.0 to 32.9 in adult; Other chest pain 09/30/2024 Refill [facility] [address] [place] [address] Vivian Arias MD 09/30/2024 Travel from Last [...] 20 12/16/2024 3:30 PM EDT Oxygen Saturation 98% 09/30/2024 3:46 PM EDT Inhaled Oxygen Concentration - - Weight 98.4 kg (217 lb) 12/16/2024 3:30 PM EDT Height 175.3 cm (5' 9 ) 12/16/2024 3:30 PM EDT Body Mass Index 32.05 12/16/2024 3:30 PM EDT Plan of Treatment Health Maintenance Due Date Last Done Comments Family Planning (PISQ) 07/30/2006 HPV Vaccines (1 - Male 3-dose series) 07/30/2006 Pneumococcal Vaccine: Pediatrics (0 to 5 Years) and At-Risk Patients (6 to 49) Years (1 of 2 - PCV) 07/30/2010 Hepatitis B Vaccines (3 of 3 - 19+ 3-dose series) 01/26/2018 09/03/2017, 07/27/2017 COVID-19 Vaccine (1 - 2023- season) 2024 Influenza Vaccine (#1) 2024 11/20/2016 Disability Screening 09/30/2025 09/30/2024 Tobacco Screening 09/30/2025 09/30/2024 Alcohol/Substance Use Screening 12/16/2025 12/16/2024 Depression Screening 12/16/2025 12/16/2024, 12/17/19 SDOH Screening 12/16/2025 12/16/2024 Lipid Panel 03/11/2027 03/11/2022, 03/28/2021 DTaP/Tdap/Td Vaccines (2 - Td or Tdap) 02/25/2028 02/24/2018, 11/20/2016 Zoster Vaccines (1 of 2) 07/30/2041 RSV Patients and Patients Aged 60 years or older (1 - 1-dose 75+ series) 07/30/2066 HIV Screening Completed 12/09/2024, 09/16, 12/08/2023, Additional history exists Hepatitis C Screening Completed 12/09/2024 , 10/03/2024, 12/08/2023, Additional history exists HIB Vaccines Aged Out [...] Procedure Name Priority Date/Time Associated Diagnosis Comments HIV ANTIBODY/ANTIGEN ([place] [facility]) Routine 12/09/2024 HEPATITIS C ANTIBODY ([place] [facility]) Routine 12/09/2024 SYPHILIS ABS ([place] [facility]) Routine 12/09/2024 CHLAMYDIA/GONORRHEA - URINE ([place] [facility]) Routine 12/09/2024 CHLAMYDIA/GONORRHEA THROAT SWAB ([place] [facility]) Routine 12/08/2024 XR CERVICAL SPINE 3V Routine 11/30/2024 1:55 PM EDT EMG Routine 11/24/2024 Tingling of left upper extremity HEPATITIS C AB W/REFL TO HCV RNA, [...] Recently Relevant to Health Maintenance Results * Chlamydia/Gonorrhea, Urine ([place] [facility]) (12/09/2024) Chlamydia, Urine Negative Negative, Indeterminate, None Detected, Invalid, Specimen unsatisfactory for evaluation, Weakly Positive, 2+ Gonorrhea, Urine Negative Negative, Indeterminate, None Detected, Invalid, Specimen unsatisfactory for evaluation, Weakly Positive, 2+ Urine Result [facility] MD LAB URINE ORDERABLES Fauzia l Result * Syphilis Antibodies (DPH) (12/09/2024) Pathologist [facility] Syphilis Abs Nonreactive Borderline, Nonreactive, Weakly Reactive, Inconclusive, Specimen unsatisfactory for evaluation Blood Venous blood specimen / Unknown Result [facility] MD LAB BLOOD ORDERABLES Fauzia l Result * Hepatitis C Antibody ([place] [facility]) (12/09/2024) Pathologist [facility] Hepatitis C Ab Nonreactive Blood Result [facility] MD LAB BLOOD ORDERABLES Fauzia l Result * HIV Ab/Ag ([place] [facility]) (12/09/2024) Pathologist [facility] HIV Ag/Ab Nonreactive Blood Result [facility] MD LAB BLOOD ORDERABLES Fauzia l Result * Chlamydia/Gonorrhea Throat Swab ([place] [facility]) (12/08/2024) Chlamydia Throat Swab Negative Gonorrhea Throat Swab Negative Swab 12/08/2024 Result [facility] MD LAB MICROBIOLOGY - GENERA L ORDERABLES Final Result * XR CERVICAL SPINE 3V (11/30/2024 1:55 PM EDT) Anatomical Region Laterality Modality Abdomen Radiographic Brandy ging 11/30/2024 1:55 PM EDT Narrative 11/30/2024 2:10 PM EDT [address] [address] XRay Report Signed Patient: Car Willson MR#: [id number] : 1990 Acct:[id number] Age/Sex: 34 / M ADM Date: 11/30/24 Loc: HO.KEYSHA Attending Dr: Yesica Virgen MD Ordering Physician: Yesica Virgen MD Date of Service: 11/30/24 Procedure(s): XR cervical spine 3V Accession Number(s): [id number] cc: Yesica Virgen MD Reason for Exam: [...] 11/30/24 1407 DD/ 1355 TD/TT: 11/30/24 1404 Global President: Procedure Note Donotuseinterpreter, Image - 11/30/[address] [address] XRay Report Signed Patient: Car WillsonMR#: [id number] : 1990Acct:[id number] Age/Sex: 34 / MADM Date: 11/30/24 Loc: ANA[facility] Attending Dr: Yesica Virgen MD Ordering Physician: Yesica Virgen MD Date of Service: 11/30/24 Procedure(s): XR cervical spine 3V Accession Number(s): [id number] cc: Yesica Virgen MD Reason for Exam: [...] 11/30/2024 02:07 PM EDT RP Dictated By: Jimob Douglas MD Signed By: <Electronically signed by Jimbo Douglas MD in OV> 11/30/24 1407 DD/ 1355 TD/TT: 11/30/24 1404 Global President: us Yesica Virgen MD IMG XR PROCEDURES Final Res ult * EMG (11/24/2024) us Yesica Virgen MD NEUROLOGY ORDERABLES Final Result * Vitamin B12/Folate, Serum Panel (10/03/2024 3:14 PM EDT) Vitamin B12 606 200 - 900 pg/mL [facility] Comment:NORMAL 200-900 PG/ML INDETERMINATE 160-199 PG/ML DEFICIENT < 160 PG/ML Folate 11.4 > or = 4.0 ng/mL [facility] Comment:Reference Values:> o r = 4.0 [...] BLOOD ORDERABLES Final Result Performing Organization Address [facility]/ZIP Co de Phone Number [facility] [address] [place] [phone] * Hepatitis C Antibody with Reflex to HCV, RNA, Quantitative, Real-Time PCR (10/03/2024 3:14 PM EDT) Hepatitis C Antibody Nonreactive Nonreactive [facility] Comment:Antibodies to HCV no t detected; does not exclude early acuteHCV infection. Blood Venous blood specimen / Unknown 10/03/2024 3:14 PM EDT 10/03/2024 4:35 PM EDT us Yesica Virgen MD LAB BLOOD ORDERABLES Final Result Performing Organization Address [facility] Co de Phone Number [facility] [address] [place] [phone] * HIV-1/2 Antigen and Antibodies, Fourth Generation, with Reflexes (10/03/2024 3:14 PM EDT) HIV AB/AG Nonreactive Nonreactive [facility] Comment:HIV-1 p24 Ag and/or HIV-1/HIV-2 Ab not detected.A test result that is nonreactive does not exclude thepossibility of exposure to or infection with HIV-1 and/orHIV-2. Nonreactive results in this assay for individualswith prior exposure to HIV-1 and/or HIV-2 may be due toantigen and antibody levels that are below the limit ofdetection of this assay.The [employer] Alinity HIV Ag/Ab Combo assay result andsupplemental assay results should be interpreted inconjunction with the patient's clinical presentation,history and other laboratory results. If the results areinconsistent with clinical evidence, additional testing issuggested to confirm the result. Blood Venous blood specimen / Unknown 10/03/2024 3:14 PM EDT 10/03/2024 4:35 PM EDT us Yesica Virgen MD LAB BLOOD ORDERABLES Final Result Performing Organization Address [facility]/ZIP Co de Phone Number [facility] [address] [place] [phone] * Vitamin B1 (10/03/2024 3:14 PM EDT) [facility] Vitamin B1 11 8 - 30 nmol/L [facility] Comment:Vitamin supplementat ion within 24 hours prior toblood draw may affect the accuracy of the results.This test was developed and its analytical performancecharacteristics have been determined by [employer] [place], [place]. It hasnot been cleared or approved by the U.S. Food and DrugAdministration. This assay has been validated pursuantto the CLIA regulations and is used for clinicalpurposes.THIS TEST WAS PERFORMED AT:[email or web address] [place] [address]WFXMBGARAMAN ALVAREZ MD,PHD Blood Venous blood specimen / Unknown 10/03/2024 3:14 PM EDT 10/03/2024 4:35 PM EDT us Yesica Virgen MD LAB BLOOD ORDERABLES Final Result Performing Organization Address City/[facility]/ZIP Co de Phone Number [facility] [address] [place] [phone] * (ABNORMAL) Vitamin B6 (10/03/2024 3:14 PM EDT) Pathologist [facility] Vitamin B6 80.3(A) 2.1 - 21.7 ng/mL [facility] Comment:Vitamin supplementat ion within 24 hours prior toblood draw may affect the accuracy of the results.This test was developed and its analytical performancecharacteristics have been determined by [employer] [place], [place]. It hasnot been cleared or approved by the U.S. Food and DrugAdministration. This assay has been validated pursuantto the CLIA regulations and is used for clinicalpurposes.THIS TEST WAS PERFORMED AT:[id number] [place] [address]KVMKDWWRAMNA ALVAREZ MD,PHD Blood Venous blood specimen / Unknown 10/03/2024 3:14 PM EDT 10/03/2024 4:35 PM EDT Yesica Virgen MD LAB BLOOD ORDERABLES Final Result [facility] [address] [place] [phone] * (ABNORMAL) Basic Metabolic Panel (10/03/2024 3:14 PM EDT) Pathologist [facility] Sodium 139 135 - 145 mmol/L [facility] Potassium 4.3 3.3 - 5.1 mmol/L [facility] Chloride 105 96 - 108 mmol/L [facility] Carbon Dioxide 27 22 - 29 mmol/L [facility] Anion Gap 11(L) 12 - 20 [facility] Urea Nitrogen (BUN) 14 9 - 16 mg/dL [facility] Creatinine, Serum 1.10 0.5 - 1.4 mg/dL [facility] Estimated Glomerular Filt Rate >60 [facility] Comment:Chronic Kidney Disea se: Estimated GFR < 60 mL/min/[id number] Kidney Disease: Estimated GFR < 15 mL/min/1.73m2 Glucose 85 60 - 115 mg/dL [facility] Calcium 9.4 8.4 - 10.2 mg/dL [facility] Blood Venous blood specimen / Unknown 10/03/2024 3:14 PM EDT 10/03/2024 4:35 PM EDT us Yesica Virgen MD LAB BLOOD ORDERABLES Final Result [facility] [address] [place] [phone] * ECG 12 lead (09/30/2024 4:33 PM EDT) Narrative Yesica Virgen MD - 09/30/2024 4:33 PM EDT Heart rate 75 bpm. [place] 37 degrees. Sinus arrhythmia. No left atrial enlargement or right atrial enlargement. No sign of hypertrophy. No ST elevation or ST depression. Normal variant EKG. us Yesica Virgen MD ECG ORDERABLES Final Resul t * (ABNORMAL) Lipid Panel, Standard (03/11/2022 12:06 PM EST) Cholesterol, Total 241(H) <200 mg/dL [facility] HDL Cholesterol 81 > OR = 40 mg/dL [facility] Triglycerides 149 <150 mg/dL [facility] LDL Cholesterol 132(H) mg/dL (calc) [facility] Comment: Reference range: <100 Desirable range <100 mg/dL for primary prevention; <70 mg/dL for patients with CHD or diabetic patients with > or = 2 CHD risk factors. LDL-C is now calculated using the Cy-Clinton calculation, which is a validated novel method providing better accuracy than the Friedewald equation in the estimation of LDL-C. Cy SS et al. DANE. 2013;310(19): 1341-6988 (http://education.PerfectSearch/faq/JNN179) Chol/HDLC Ratio 3.0 <5.0 (calc) [facility] [place] [facility] Non-HDL Cholesterol 160(H) <130 mg/dL (calc) [facility] Comment: For patients with diabetes plus 1 [...] BLOOD ORDERABLES Final Resul t [facility] [address] [facility], [place] [address] [facility] [place] [employer] [facility] [address], ([address]) [place] [phone] from Last 3 Months or Most Recently Relevant to Health Maintenance [place] [address] [place] [address] , [address] [address] DENTAL - HSN FULL (MEDICAID) Care Teams Client Experience Consultant Relationship Specialty Start Date End Date Samm Loyola CNP PCP - General Family Medicine 09/23/24
--- OUTSIDE RECORDS SUMMARY | 2024-12-16 15:57 | XMS_ITS | Encounter Summary ---
Author Organization [employer] Address [address] 7 h Floor [address] Care Team Providers Care Rail Doweling Machine Operator Name Role Phone Samm Loyola CNP Primary Care Provider [phone] Encounter Details Date Type Department Care Team ([facility] st Contact Info) Description 12/15/2024 Results Follow-Up [facility] [address] [place], [place] [phone] Samm Loyola CNP [address] [place] [address] Chlamydia/Gonorrhea Throat Swab ([facility]) Social History Tobacco Use Types Packs/Day Years [...] documented as of this encounter Care Teams Rail Doweling Machine Operator Relationship Specialty Start Date End Date Samm Loyola CNP PCP - General Family Medicine 09/23/24 documented as of this encounter
--- OUTSIDE RECORDS SUMMARY | 2024-12-16 15:57 | XMS_ITS | Encounter Summary ---
Author Organization [employer] Address [address] [facility] 7t [place] [address] Care Team Providers Care Silo Tender Name Role Phone Samm Loyola CNP Primary Care Provider [phone] Encounter Details Date Type Department Care Team ([facility] st Contact Info) Description 12/02/2024 Results Follow-Up [facility] [address] [place] [address] Eileen Waddell RN EMG Social History Tobacco Use Types Packs/Day Years [...] documented as of this encounter Care Teams Silo Tender Relationship Specialty Start Date End Date Samm Loyola CNP PCP - General Family Medicine 09/23/24 documented as of this encounter
--- OUTSIDE RECORDS SUMMARY | 2024-12-16 15:57 | XMS_ITS | Encounter Summary ---
Author Organization [employer] Address [address] [facility] 7t [place] [address] Care Team Providers Care Casing Blower Name Role Phone Samm Loyola CNP Primary Care Provider [phone] [phone] Encounter Details Date Type Department Care Team (Late st Contact Info) Description 12/02/2024 Orders Only [facility] [address] [place], [place] [phone] Yesica Virgen MD [address] [place] [address] Cervical radiculopathy (Primary Dx) Social History Tobacco Use Types [...] as of this encounter Visit Diagnoses Diagnosis Cervical radiculopathy- Primary Brachial neuritis or radiculitis nos documented in this encounter Additional Health Concerns Assessment Noted Time PHQ-9 Depression Total Score: 6 04/21/19 24 10:23 AM EST documented as of this encounter Care Teams Casing Blower Relationship Specialty Start Date End Date Samm oLyola CNP PCP - General Family Medicine 09/23/24 documented as of this encounter
--- OUTSIDE RECORDS SUMMARY | 2024-12-16 15:57 | XMS_ITS | Encounter Summary ---
Author Organization [employer] Address [address] [place] [address] [address] [place] [address] Care Team Providers Care Provider Relations Representative Name Role Phone Vivian Arias MD Primary Care Provider [phone] Samm Loyola CNP Primary Care Provider [phone] Encounter Details Date Type Department Care Team [...] on filedocumented in this encounter Care Teams Provider Relations Representative Relationship Specialty Start Date End Date Vivian Arias MD [address] [place] [address] PCP - General Family Medicine 02/27/15 09/22/24 Samm Loyola CNP [address] [place] [address] PCP - General Family Medicine 09/23/24 documented as of this encounter
--- OUTSIDE RECORDS SUMMARY | 2024-12-16 15:57 | XMS_ITS | Encounter Summary ---
Author Organization [employer] Address [address] [facility] 7t [place] [address] Care Team Providers Care Overseamer Name Role Phone Samm Loyola CNP Primary Care Provider [phone] [phone] Reason for Visit * Reason Onset Date Comments Med Refill 09/30/2024 Encounter Details Date Type Department Care Team (Late st Contact Info) Description 09/30/2024 Refill [facility]S [address] [place] [address] Vivian Arias MD [address] [place] [address] Social History Tobacco Use Types Packs/Day Years [...] documented as of this encounter Care Teams Overseamer Relationship Specialty Start Date End Date Samm Loyola CNP PCP - General Family Medicine 09/23/24 documented as of this encounter
--- OUTSIDE RECORDS SUMMARY | 2024-12-16 15:57 | XMS_ITS | Encounter Summary ---
Author Organization [employer] Address [address] [facility] [address] [place] [address] Care Team Providers Care Graduate Student Name Role Phone Samm Loyola CNP Primary Care Provider [phone] Reason for Visit * Reason Onset Date Comments chart prep 12/12/2024 Encounter Details Date Type Department Care Team ([facility] st Contact Info) Description 12/12/2024 Telephone [facility] [address] [place], [place] [phone] Samm Loyola CNP [address] [place] [address] chart prep Social History Tobacco Use Types Packs/Day Years [...] encounter Miscellaneous Notes * Telephone Encounter - Isaura Stacy MA - 12/12/2024 2:47 PM EDT Chart Prep Labs: not applicable Images: not applicable Referrals: not applicable Vaccines due: Covid, Flu, PCV20, Hep B, and HPV Screenings: not applicable Overdue care gaps: SBIRT, SDOH, PHQ-9, and JUDY-7 documented in this encounter Plan of Treatment Not on file documented as of this encounter Visit Diagnoses Not on filedocumented in this encounter Additional Health Concerns Assessment Noted Time PHQ-9 Depression Total Score: 6 04/21/19 24 10:23 AM EST documented as of this encounter Care Teams Graduate Student Relationship Specialty Start Date End Date Samm Loyola CNP PCP - General Family Medicine 09/23/24 documented as of this encounter
[2024-12-17 07:19] LABS: HBS Num1 771.32 mIU/mL (0-7.99); HBc Num1 0.19 S/CO (0.00-0.79); HBsAGNum1 0.42 S/CO (0.00-0.99); Hepatitis B Surface Antigen Negative (Negative); ~Hepatitis B Surface Antibody REACTIVE (Nonreactive)
[2024-12-19 11:19] LABS: Trichomonas vag. RNA Ur Male NOT DETECTED (NOT DETECTED)
== END 2024-12-16 15:54 | disposition home or self-care (01) ==
LOC: HO.CHCLDS 15:53
DX: Z20.2 Contact with and (suspected) exposure to infections with a predominantly sexual mode of transmission (principal)
CPT/HCPCS: 36415; 86704; 86706; 87340; 87661